=== PATIENT | male | born 1985 | race Caucasian/White ===

== ENCOUNTER 2017-03-15 07:59 | Emergency (ER) | payer BC ==
[2017-03-15 08:30] VITALS: BP 132/89
--- NOTE | 2017-03-15 08:34 | UC ---
Throat Pain/Nasal Erik HPI - HPI Summary HPI Summary: sore throat and fever, body aches, nasal congestion, bilat ear pain since . Hx enlarged tonsils, has seen [facility] in [place] in the past. - History of Current Complaint Chief Complaint: UCRespiratory Stated Complaint: SORE THROAT FEVER Time Seen by Provider: 03/15/17 08:31 Hx Obtained From: Patient Onset/Duration: Gradual Onset, Lasting Days, Still Present Severity: Moderate Pain Intensity: 8 Pain Scale Used: 0-10 Numeric Cough: Nonproductive Associated Signs & Symptoms: Positive: Dysphagia, Hoarseness, Nasal Discharge, Fever Related History: Seasonal Allergies - Epiglottits Risk Factors Epiglottis Risk Factors: Negative - Allergies/Home Medications Allergies/Adverse Reactions: Allergies Allergy/AdvReac Type Severity Reaction Status Date / Time No Known Allergies Allergy Verified 03/15/17 08:15 Home Medications: Home Medications Acetaminophen [Acetaminophen Extra Stren] 500 mg PO BID PRN 03/15/17 [History Confirmed 03/15/17] PMH/Surg Hx/FS Hx/Imm Hx Previously Healthy: No - enlarged tonsils - Surgical History Surgical History: None - Family History Known Family History: Positive: Hypertension - Social History Occupation: Employed Full-time Lives: With Family Alcohol Use: Occasionally Substance Use Type: Marijuana Substance Use Comment - Amount & Last Used: Daily Smoking Status (MU): Former Smoker Type: Cigarettes Amount Used/How Often: 1/2 pack per day Length of Time of Smoking/Using Tobacco: 12yrs Have You Smoked in the Last Year: Yes When Did the Patient Quit Smoking/Using Tobacco: 11/2016 Household Exposure Type: Cigarettes Review of Systems Constitutional: Fever Skin: Negative Eyes: Negative ENT: Sore Throat, Ear Ache, Nasal Discharge Respiratory: Cough Cardiovascular: Negative Gastrointestinal: Negative Genitourinary: Negative Motor: Negative Neurovascular: Negative Musculoskeletal: Negative Neurological: Negative Psychological: Negative All Other Systems Reviewed And Are Negative: Yes Physical Exam Triage Information Reviewed: Yes Appearance: Well-Nourished, Ill-Appearing, Pain Distress Vital Signs: Initial Vital Signs Temp 99.3 F 03/15/17 08:16 Pulse 70 03/15/17 08:16 Resp 18 03/15/17 08:16 BP 132/89 03/15/17 08:16 Pulse Ox 97 05/04/17 08:16 elevated BP noted. Vital Signs Reviewed: Yes Eyes: Positive: Conjunctiva Clear ENT: Positive: Hearing grossly normal, Pharyngeal erythema, TMs normal, Tonsillar swelling, Muffled/hoarse voice. Negative: Tonsillar exudate Neck: Positive: Supple, Nontender, No Lymphadenopathy Respiratory: Positive: Lungs clear, Normal breath sounds, No respiratory distress Cardiovascular: Positive: RRR, No Murmur, Pulses Normal, Brisk Capillary Refill Musculoskeletal: Positive: Strength Intact, ROM Intact Neurological: Positive: Alert, Muscle Tone Normal Psychological Exam: Normal Skin Exam: Normal Throat Pain/Nasal Course/Dx - Course Course Of Treatment: pt advised of elevated BP and need to have it checked again within one month. rapid strep and flu both neg - Differential Dx/Diagnosis Differential Diagnosis/HQI/PQRI: Influenza, Otitis Media, Pharyngitis, Sinusitis , URI Provider Diagnoses: pharyngitis. elevated BP without dx of HTN Discharge - Discharge Plan Condition: Stable Disposition: HOME Prescriptions: Dexamethasone TAB* [Decadron TAB*] 12 mg PO BID #9 tab Patient Education Materials: Tonsillitis (ED), Hypertension (ED) Forms: *Work Release Referrals: Vikram Nuñez MD [Medical Doctor] - 1 Week (for evaluation for tonsillectomy; established patient ) Non Staff,Doctor [Primary Care Provider] - Additional Instructions: Your blood pressure was 132/89 today which is elevated. You need to have this checked again within one month. Your strep and flu swabs were both negative today, so there is no specific medication to treat your sore throat today. You have a viral tonsillitis. We are giving steroids to help decrease the swelling of your tonsils. You should gargle with salt water to help kill the germs also. We have also advised you to see the ENT specialist to consider having your tonsils out. Return to urgent care if you have any new or worsening symptoms.
== END 2017-03-15 08:58 | disposition home or self-care (01) ==
LOC: UCCORT 07:59
DX: J02.9 Acute pharyngitis, unspecified (principal); R03.0 Elevated blood-pressure reading, without diagnosis of hypertension; R50.9 Fever, unspecified; M79.1 Myalgia; H92.03 Otalgia, bilateral; Z87.891 Personal history of nicotine dependence
CPT/HCPCS: 87502; 87651; 99212; G0463

== ENCOUNTER 2018-01-07 10:32 | Emergency (ER) | payer BC ==
[2018-01-07 11:15] VITALS: BP 115/80
[2018-01-07] MEDS ORDERED: Ondansetron ODT TAB* 4 MG PO ONE (11:20)
--- NOTE | 2018-01-07 11:36 | ED ---
GI/ HPI - HPI Summary HPI Summary: 32 yr old male with the complaint of NVD. Onset last night around 8 pm. He has generalized abdominal cramping. He has had scant blood in emesis after many episodes of vomiting. No black stool. No antibiotic use. He has not had abdominal distention. He has some discomfort all over the abdomen that is crampy. Has a little pain in umbilicus area. - History of Current Complaint Chief Complaint: UCGI Time Seen by Provider: 01/07/18 11:21 Stated Complaint: VOMITING Pain Intensity: 5 - Allergy/Home Medications Allergies/Adverse Reactions: Allergies Allergy/AdvReac Type Severity Reaction Status Date / Time No Known Allergies Allergy Verified 01/07/18 11:07 PMH/Surg Hx/FS Hx/Imm Hx - Surgical History Surgery Procedure, Year, and Place: Tonsillectomy, 05/2017, [facility] Infectious Disease History: No Infectious Disease History: Denies: Traveled Outside the [place] in Last 30 Days - Family History Known Family History: Positive: Hypertension - Social History Occupation: Employed Part-time Alcohol Use: Occasionally Substance Use Type: Reports: Marijuana Substance Use Comment - Amount & Last Used: Daily Smoking Status (MU): Former Smoker Type: Cigarettes Amount Used/How Often: 1 PACK PER WEEK Length of Time of Smoking/Using Tobacco: 12yrs Have You Smoked in the Last Year: Yes Review of Systems Positive: Chills, Fatigue Positive: Vomiting, Diarrhea, Nausea All Other Systems Reviewed And Are Negative: Yes Physical Exam Triage Information Reviewed: Yes Vital Signs On Initial Exam: Initial Vitals Temp Pulse Resp BP Pulse Ox 98.2 F 91 16 115/80 97 01/07/18 11:08 01/07/18 11:08 01/07/18 11:08 01/07/18 11:08 01/07/18 11:08 Vital Signs Reviewed: Yes Appearance: Positive: Well-Appearing, No Pain Distress Skin: Positive: Warm Eyes: Positive: EOMI ENT: Positive: Pharynx normal Respiratory/Lung Sounds: Positive: Clear to Auscultation, Breath Sounds Present Cardiovascular: Positive: RRR. Negative: Murmur Abdomen Description: Positive: Nontender, Other: - no mass, no distention, no hernias. Musculoskeletal: Positive: Strength/ROM Intact Neurological: Positive: Sensory/Motor Intact, Alert, Oriented to Person Place, Time, CN Intact II-III Psychiatric: Positive: Normal Diagnostics - Vital Signs Vital Signs Temp Pulse Resp BP Pulse Ox 01/07/18 11:08 98.2 F 91 16 115/80 97 - Laboratory Lab Statement: Any lab studies that have been ordered have been reviewed, and results considered in the medical decision making process. GIGU Course/Dx - Course Course Of Treatment: 32 yr old with gastroenteritis. Plan DC home on zofran. - Diagnoses Provider Diagnoses: Gastroenteritis Discharge - Discharge Plan Condition: Good Disposition: HOME Prescriptions: Ondansetron ODT TAB* [Zofran 4 MG Odt TAB*] 4 mg PO Q8H PRN #10 tab.odt PRN Reason: Nausea Patient Education Materials: Gastroenteritis (ED) Referrals: No Primary Care Phys,NOPCP [Primary Care Provider] - [facility] [Outside]
== END 2018-01-07 11:55 | disposition home or self-care (01) ==
LOC: UCCORT 10:32
DX: K52.9 Noninfective gastroenteritis and colitis, unspecified (principal); Z87.891 Personal history of nicotine dependence
CPT/HCPCS: 99212; A9270-GY; G0463